=== PATIENT | female | born 1990 | race African-American/Black ===

== ENCOUNTER 2016-11-01 09:19 | Emergency (ER) | payer OTHER ==
[2016-11-01 09:23] VITALS: BP 137/67
--- NOTE | 2016-11-01 09:51 | PROVIDER DOCUMENTATION ---
HPI-General Adult - General Chief Complaint: Cold Symptoms Stated Complaint: HEADACHE /COUGH/ Time Seen by Provider: 11/01/16 09:31 Source: patient Allergies/Adverse Reactions: Patient Allergies Allergy/AdvReac Type Severity Reaction Status Date / Time No Known Allergies Allergy Verified 12/07/15 18:34 Home Medications: Home Medication List Medication Instructions Recorded Confirmed Last Taken Type Ciprofloxacin HCl [Cipro] 500 mg PO BID #14 tablet 12/07/15 Unknown Rx Medroxyprogesterone Acetate 12/07/15 12/07/15 Unknown History [Depo-Provera] Metronidazole 0.75% Vag Gel 1 applicator VAG HS #1 tube 12/07/15 Unknown Rx [Metrogel-Vaginal 0.75% Gel] Acetaminophen with Codeine 1 each PO Q4H PRN PRN #20 tablet 08/10/16 Unknown Rx [Tylenol with Codeine #3] Acyclovir [Zovirax] 800 mg PO 5XDAY #25 tablet 08/10/16 Unknown Rx Azithromycin [Zithromax Z-Sumanth] 250 mg PO DIRECTED #1 pkg 11/01/16 Unknown Rx - History of Present Illness -Gen Adult Nature of Presenting Problems: patient is a 26 yo F that presents to the ER with generalized body aches, cough , fever, sinus congestion, and headache that began abruptly at 4am this morning. denies n/v/d, Location of Pain/Injury: reports: generalized Quality of Pain: reports: aching Severity: reports: mild Onset/Duration: reports: abrupt, this morning (0400) Timing: reports: still present, constant Context/Activities at Onset: reports: none Modifying Factors: improves with: nothing Associated Symptoms: reports: cough, EENT symptoms, fever/chills, headaches, malaise, muscle aches, sinus congestion/drainage. denies: diarrhea, genitourinary problems, nausea, shortness of breath, vomiting Similar Symptoms Previously?: No Recently seen or treated by another doctor?: No Review of Systems - Adult - REVIEW OF SYSTEMS - ADULT Constitutional: reports: fever. denies: chills Eyes: reports: no symptoms reported Ears, Nose, Mouth & Throat: reports: sinus problem. denies: ear pain, throat pain, throat swelling Cardiovascular: denies: chest pain, palpitations, syncope Respiratory: reports: cough. denies: shortness of breath, wheezing Gastrointestinal: denies: abdominal pain, diarrhea, nausea, vomiting Genitourinary: reports: no symptoms reported Musculoskeletal: reports: muscle aches. denies: muscle weakness Integumentary: reports: no symptoms reported Neurological: reports: headache/migraines. denies: dizziness/vertigo, syncope Psychiatric: reports: no symptoms reported Endocrine: reports: no symptoms reported Hematologic/Lymphatic: reports: no symptoms reported Allergic/Immunologic: reports: no symptoms reported All Other Systems: Reviewed and Negative Past History - Adult - PAST MEDICAL HISTORY-ADULT Review of Records: reports: Old Records Reviewed, Nursing Assessment Review, Medications Reviewed Endocrine/Immune: reports: denies history - PRIOR SURGERIES/PROCEDURES Surgical/Procedure History: reports: appendectomy, other (hemorrhoidectomy) - IMMUNIZATION STATUS Childhood Immunizations: See Nurse Assessment Flu Vaccine: See Nurse Assessment - FAMILY HISTORY Family History: reviewed, not pertinent - SOCIAL HISTORY Smoking: non-smoker Alcohol Use Frequency: occasionally Living Situation: family Physical Exam-General - PHYSICAL EXAM-ADULT Initial Vital Signs Reviewed: Yes - CONSTITUTIONAL General Appearance: alert, no apparent distress - EYES Eyes: PERRL/EOMI, pink conjunctivae - HEAD, EARS, NOSE, MOUTH & THROAT HENMT: normocephalic/atraumatic, moist mucous membranes, normal ENT inspection, TMs normal, pharynx normal - NECK Neck: non-tender, full range of motion, normal inspection. negative: lymphadenopathy - RESPIRATORY Respiratory: lungs clear, normal breath sounds, no respiratory distress, no accessory muscle use - CARDIOVASCULAR Cardiovascular: regular rate, rhythm, no edema, no murmur - GASTROINTESTINAL (ABDOMEN) Abdominal Exam: normal bowel sounds, non tender, soft, no organomegaly, no pulsatile mass - MUSCULOSKELETAL Extremity: normal range of motion, normal inspection, normal capillary refill - SKIN Integumentary: normal color, warm/dry - NEUROLOGIC Neurologic: grossly normal, no motor/sensory deficits - PSYCHIATRIC Psych/Mental Status: normal mood/affect, normal thought content, normal thought process, oriented x 3 Progress - PLAN OF CARE/RESULTS Progress/Plan/Lab Results: plan of care-swabs Vital Signs Temp Pulse Resp BP Pulse Ox 11/01/16 09:22 99.7 F H 101 H 18 137/67 100 No Known Allergies Allergy (Verified 12/07/15 18:34) Ciprofloxacin HCl [Cipro] 500 mg PO BID #14 tablet 12/07/15 Medroxyprogesterone Acetate [Depo-Provera] 12/07/15 Metronidazole 0.75% Vag Gel [Metrogel-Vaginal 0.75% Gel] 1 applicator VAG HS #1 tube 12/07/15 Acetaminophen with Codeine [Tylenol with Codeine #3] 1 each PO Q4H PRN PRN #20 tablet 08/10/16 Acyclovir [Zovirax] 800 mg PO 5XDAY #25 tablet 08/10/16 Laboratory 11/01/16 11/01/16 09:40 09:40 Influenza A (Rapid) NEGATIVE Influenza B (Rapid) NEGATIVE Group A Strep Rapid NEGATIVE Orders Category Date Time Status DIRECT STREP PL Stat Lab 11/01/16 09:[address] Stat Lab 11/01/16 09:40 Completed pt will be d/c home f/u with pcp, rx given, pt was clinically stable and understood instructions and results Departure - Departure Time of Disposition Order: 10:41 DIAGNOSIS: URI (upper respiratory infection) Qualifiers: URI type: acute nasopharyngitis (common cold) Qualified Code(s): J00 - Acute nasopharyngitis [common cold] Disposition: HOME 01 Certified Medical Emergency: Emergent Condition: Stable Additional Instructions: Tylenol and Motrin for pain alternating Push Fluids ED Follow Up Instructions: You have been treated by a care provider in the Emergency Department. These instructions are being provided to you so you can have an understanding of how to care for yourself upon discharge. Upon discharge from the Emergency Department, you are responsible for making arrangements for follow-up care by a physician of your choice. Take all prescribed medications as directed. Return to the Emergency Department immediately for any new or worsening symptoms. You may call the Physician Referral phone number at [phone] to obtain a list of Physicians who are taking new patients. Referrals: Mira Lane CRNP [Primary Care Provider] - Call for Appoint. 1-2days Forms: Return to School/Parent Work Instructions: Upper Respiratory Infection, Adult, [id number] Attestation - Scribe Verification/Attestation Scribe:: Ryan Harris Acting as Scribe for:: Lenin Blackburn Scribe documention review:: This chart was documented by a scribe and accurately reflects the service the provider performed and the decisions made by the provider. Physician Attestation - Physician Attestation I, the provider, attest to the following statement:: Lenin Blackburn Physician documentation Attestation:: This documentation recorded by the scribe accurately reflects the service I personally performed and the decisions made by me.
== END 2016-11-01 11:00 | disposition home or self-care (01) ==
LOC: P.ED 09:19
DX: J06.9 Acute upper respiratory infection, unspecified (principal); R51 Headache; R05 Cough; M79.1 Myalgia; R50.9 Fever, unspecified; R09.81 Nasal congestion; R53.81 Other malaise
CPT/HCPCS: 87081; 87430; 87804